=== PATIENT | male | born 1940 | race African-American/Black ===

== ENCOUNTER 2019-02-23 18:37 | Emergency (ER) | payer MEDICARE ==
[~2019-02-23] VITALS: Ht 170.2 cm; Wt 47.1 kg
[2019-02-23 19:08] LABS: BASOPHILS % (AUTO) 0.1 % (0.0-2.0); EOSINOPHILS % (AUTO) 0 % (1.0-6.0); HEMATOCRIT 39.2 % (41-53); HEMOGLOBIN 12.6 g/dL (13.5-17.5); LYMPHOCYTES # (AUTO) 0.4 K/uL (1.0-4.8); LYMPHOCYTES % (AUTO) 4.1 % (22.0-44.0); MEAN CORPUSCULAR HEMOGLOBIN 31.2 pg (26.0-34.0); MEAN CORPUSCULAR HGB CONC 32.2 G/dL (31.0-37.0); MEAN CORPUSCULAR VOLUME 97 fL (80-100); MONOCYTES # (AUTO) 0.7 K/uL (0.1-1.0); MONOCYTES % (AUTO) 7.2 % (2.0-9.0); NEUTROPHILS # (AUTO) 8.7 K/uL (1.8-7.7); PLATELET COUNT (AUTO) 301 K/uL (150-450); RED BLOOD CELL COUNT(AUTO) 4.04 MIL/uL (4.50-5.90); RED CELL DISTRIBUTION WIDTH 15.5 % (11.5-14.5)
[2019-02-23 19:14] LABS: NEUTROPHILS % (AUTO) 88.6 % (40.0-70.0)
[2019-02-23] MEDS ORDERED: SODIUM CHLORIDE 0.9% 1,000 ML IV ONE ×2 (19:15→20:15)
[2019-02-23 19:27] LABS: APPEARANCE,URINE CLOUDY (CLEAR); GLUCOSE, URINE (UA) NEGATIVE (NEGATIVE); KETONES,URINE NEGATIVE (NEGATIVE); LEUKOCYTE ESTERASE ,URINE NEGATIVE (NEGATIVE); NITRATE,URINE NEGATIVE (NEGATIVE); OCCULT BLOOD,URINE MODERATE (NEGATIVE); PROTEIN,URINE POS 1+ (NEGATIVE); UROBILINOGEN,URINE 0.2 mg/dL (<=1.0)
[2019-02-23 19:32] LABS: BILIRUBIN,URINE PRELIM. POSITIVE (NEGATIVE)
[2019-02-23 19:39] LABS: PROTHROMBIN TIME 10.6 SEC (9.4-11.6)
[2019-02-23 19:44] LABS: AMPHET/METH SCREEN,URINE NEGATIVE (NEGATIVE); BARBITURATE SCREEN, URINE NEGATIVE (NEGATIVE); BENZODIAZEPINES SCREEN,URINE NEGATIVE (NEGATIVE); CANNABINOID SCREEN,URINE NEGATIVE (NEGATIVE); COCAINE SCREEN,URINE NEGATIVE (NEGATIVE); METHADONE SCREEN, URINE NEGATIVE (NEGATIVE); OPIATE SCREEN,URINE NEGATIVE (NEGATIVE)
[2019-02-23 19:45] LABS: PHENCYCLIDINE SCREEN,URINE NEGATIVE (NEGATIVE)
[2019-02-23 19:46] LABS: RBC,URINE 0-2 /HPF (0-2); WBC,URINE 0-2 /HPF (0-5)
[2019-02-23 19:47] LABS: BACTERIA,URINE Few /HPF (None Seen); SQUAMOUS EPITHELIAL CELL,UR Moderate /LPF (None Seen)
[2019-02-23 19:49] LABS: AMORPHOUS SEDIMENT,UR Few /LPF (None Seen)
[2019-02-23 19:52] LABS: ANION GAP 20 mmol/L (8-16); CALCIUM, TOTAL 10.4 mg/dL (8.8-10.5); CARBON DIOXIDE 18 mmol/L (22-29); CHLORIDE 112 mmol/L (98-107); CREATININE 3.49 mg/dL (0.60-1.30); GLOMERULAR FILTR. RATE CALC 21 mL/min (>60); GLUCOSE,RANDOM 112 mg/dL (70-110); POTASSIUM 5.7 mmol/L (3.5-5.1); SODIUM SERUM 150 mmol/L (136-145); UREA NITROGEN, BLOOD 82 mg/dL (7-18)
[2019-02-23 19:58] LABS: TROPONIN I 0.15 ng/mL (0.00-0.05)
[2019-02-23 20:09] LABS: ALANINE AMINOTRANSFERASE 62 U/L (12-78); ALBUMIN 4.1 g/dL (3.4-5.0); ALKALINE PHOSPHATASE 85 U/L (46-116); ASPARTATE AMINOTRANSFERASE 283 U/L (15-37); BILIRUBIN,TOTAL 0.9 mg/dL (0.1-1.0); TOTAL PROTEIN, SERUM 8.3 g/dL (6.4-8.2)
[2019-02-23] MEDS ORDERED: APIX5TAB4 PO (20:09)
[2019-02-23] MEDS ORDERED: LACT1CAP65 PO (20:09)
[2019-02-23] MEDS ORDERED: ALLO100T PO (20:09)
[2019-02-23] MEDS ORDERED: AMLO2.5T29 PO (20:09)
[2019-02-23] MEDS ORDERED: FERR-82 PO (20:09)
[2019-02-23] MEDS ORDERED: MULT-1203 PO (20:13)
[2019-02-23] MEDS ORDERED: TAMS-1 PO (20:13)
[2019-02-23] MEDS ORDERED: THIA100T67 PO (20:13)
[2019-02-23] MEDS ORDERED: FOLI1TAB15 PO (20:13)
[2019-02-23] MEDS ORDERED: LORazepam 2 MG/ML VIAL IVP ONE (20:15)
[2019-02-23 20:26] LABS: LACTIC ACID 4.2 mmol/L (0.4-2.0)
[2019-02-23 20:49] LABS: CREATINE KINASE, TOTAL ONLY 2725 U/L (39-308)
[2019-02-23] MEDS ORDERED: ALBUTEROL SULFATE 5 MG/ML 20 ML NEB SOLN [BULK] NEB ONE (21:00)
[2019-02-23] MEDS ORDERED: PIPERACILLIN SODIUM/TAZOBACTAM 2.25 GM in DEXTROSE 5%-WATER 50 ML IV ONE (22:00)
[2019-02-23] MEDS ORDERED: PIPERACILLIN/TAZO 3.375 GM/D5W 50 ML IV ONE (22:00)
[2019-02-23] MEDS ORDERED: ACETAMINOPHEN 325 MG TABLET PO PRN ×2 (22:15→23:15)
[2019-02-23] MEDS ORDERED: 0.9% SODIUM CHLORIDE 10 ML SYRINGE IVP PRN ×2 (22:15→23:15)
[2019-02-23] MEDS ORDERED: ONDANSETRON HCL 4 MG/2 ML VIAL IVP PRN ×2 (22:15→23:15)
[2019-02-23 22:22] LABS: CALCIUM, TOTAL 8.9 mg/dL (8.8-10.5); CREATININE 3.01 mg/dL (0.60-1.30); POTASSIUM 5.7 mmol/L (3.5-5.1)
[2019-02-23] MEDS ORDERED: DOCUSATE SODIUM 100 MG CAPSULE PO SCH (23:15)
[2019-02-23] MEDS ORDERED: SODIUM CHLORIDE 0.9% 1,000 ML IV SCH (23:15)
[2019-02-23] MEDS ORDERED: OxyCODONE HCL/ACETAMINOPHEN 5-325 MG TABLET PO PRN ×2 (23:15)
[2019-02-23] MEDS ORDERED: MAGNESIUM HYDROXIDE SUSPENSION 30 ML UDCUP PO PRN (23:15)
[2019-02-24] MEDS ORDERED: CIPROFLOXACIN 200 MG/D5% WATER 100 ML IV SCH
[2019-02-24 00:30] LABS: SITE, BLOOD GAS RT RADIAL; SOURCE, BLOOD GAS ART; TEMPERATURE, FAHRENHEIT, BG 99.1 FAHREN (96.0-98.6)
[2019-02-24] MEDS ORDERED: SODIUM CHLORIDE 0.45% 1,000 ML IV SCH (00:30)
[2019-02-24 00:31] LABS: ABG BASE EXCESS -11.5 mmol/L (-2.0-3.0); ABG CARBOXYHEMOGLOBIN 0.3 % (0.0-1.5); ABG HCO3 16.2 mmol/L (22.0-26.0); ABG METHEMOGLOBIN 0.2 % (0.0-1.5); ABG OXYGEN CONTENT 15.2 mL/dL (15.0-23.0); ABG OXYHEMOGLOBIN 96.9 % (94.0-100.0); ABG PCO2 31 mmHg (35-45); PO2, ARTERIAL BG 112.8 mmHg (75.0-83.0)
[2019-02-24 00:32] LABS: ABG A-A DIFF O2 43.1 mmHg (10-20.0); ABG OXYGEN SATURATION 97.4 % (95.0-98.0); O2 DEVICE,BLOOD GAS CANNULA (ROOM AIR)
[2019-02-24 03:50] VITALS: BP 137/85
[2019-02-24] MEDS ORDERED: FAMOTIDINE 10 MG/ML 2 ML VIAL IVP SCH (09:00)
[2019-02-24] MEDS ORDERED: MetroNIDAZOLE 500 MG TABLET PO SCH ×2 (09:00)
== END 2019-02-24 04:02 | disposition short-term general hospital (02) ==
LOC: EMS 18:39 → EDBD 18:39 → EMS 02-24 04:02
DX: N17.9 Acute kidney failure, unspecified (principal); R65.10 Systemic inflammatory response syndrome (SIRS) of non-infectious origin without acute organ dysfunction; E87.5 Hyperkalemia; E87.0 Hyperosmolality and hypernatremia; E86.0 Dehydration; E46 Unspecified protein-calorie malnutrition; M62.82 Rhabdomyolysis; E87.2 Acidosis; I10 Essential (primary) hypertension
CPT/HCPCS: 36415; 36600; 51702; 70450; 71045; 80048; 80053; 80307; 81001; 82140; 82550; 82805; 83605; 84484; 85025; 85610; 85730; 87040; 87077; 87186; 87205; 93005; 94644; 94799; 96361; 96365; 96366; 96367; 96375; 99291; G0480; J0744; J2060; J2543; J7030; J7060